=== PATIENT | male | born 1960 | race African-American/Black ===

== ENCOUNTER 2016-11-18 08:26 | Inpatient (IN) | payer OTHER ==
[2016-11-18] VITALS (8 sets, daily range): BP systolic 90–101; BP diastolic 40–71
[~2016-11-18] VITALS: Ht 172.7 cm; Wt 43.0 kg
[~2016-11-18 08:26] MED LIST: AMOXICILLIN500 MG PO; AMOXICILLIN875 MG PO; ANUCORT-HC25 MG RE; ATIVAN1 MG PO; AUGMENTIN875TAB PO; B-1100 MG PO; EQ OMEPRAZOLE20 MG PO; FOLIC ACID1 MG PO; GNP VITAMIN B PO; HYDROCHLOROT25 MG PO; LEVAQUIN750 MG PO; LIBRIUM10 MG PO; LIDOCAINE VISC20 ML EX; LISINOPRIL20 MG PO; MULTI VIT PO; NICOTINE T21 MG/PATC TD; NO HOME MEDS; PRAZOSIN HCL2 M1 PO; PRAZOSIN HCL5 MG PO; PRILOSEC20 MG/CAP PO; PRILOSEC40 MG PO; TRAZODONE50 MG PO; ULTRAM50 M1 PO; VITAMIN B-1100 M1 PO; ZESTRIL/PRI20 MG/TAB PO
[2016-11-18] MEDS ORDERED: LISINOP/HCTZ1 TA2 PO (08:45)
[2016-11-18 09:11] LABS: HEMATOCRIT 33.6 % (39.0-50.0); HEMOGLOBIN 12.5 g/dl (14.0-18.0); IMMATURE GRANULOCYTES 1.4 % (0.0-1.0); MEAN CELL VOLUME 80.2 fL CALC (80.0-100.0); MEAN CORPUSCULAR HGB 29.8 pG CALC (26.0-32.0); MEAN CORPUSCULAR HGB CONC 37.2 g/L CALC (32.0-36.0); NEUT# 5.31 thou/uL (1.82-7.42); RED BLOOD COUNT 4.19 mill/uL (4.70-6.10); RED CELL DISTRI WIDTH 13.3 % (11.5-15.5)
[2016-11-18 09:25] LABS: ALBUMIN 3.4 g/dL (3.2-5.0); ALKALINE PHOSPHATASE 163 u/l (38-126); ANION GAP 14 (6-22 (CALC)); BILIRUBIN, TOTAL 0.4 mg/dL (0.0-1.4); BUN 15 mg/dL (9-20); BUN/CREATININE RATIO 16 (12-20 (CALC)); CALCIUM 8.6 mg/dL (8.4-10.2); CARBON DIOXIDE 23 mmol/l (22-30); CHLORIDE 82 mmol/l (95-108); GFR > 60 ML/MIN (>=60 (CALC)); GFR FOR AFR.AMER. > 60 ML/MIN (>=60 (CALC)); GLUCOSE 111 mg/dL (75-110); POTASSIUM 3.7 mmol/l (3.5-5.1); SGOT/AST 56 u/l (17-59); SGPT/ALT 42 u/l (21-72); TOTAL PROTEIN 6.6 g/dL (6.3-8.2)
[2016-11-18 09:36] LABS: MYOGLOBIN 53 ng/mL (0 - 121)
[2016-11-18 09:52] LABS: SODIUM 115 mmol/l (137-146)
[2016-11-18 13:30] LABS: URINE BILIRUBIN - DIPSTICK NEGATIVE (NEGATIVE); URINE BLOOD DIPSTICK NEGATIVE (NEGATIVE); URINE CLARITY CLEAR; URINE COLOR YELLOW; URINE GLUCOSE - DIPSTICK NEGATIVE (NEGATIVE); URINE KETONE NEGATIVE (NEGATIVE); URINE LEUK ESTERASE NEGATIVE (Negative); URINE NITRITE - DIPSTICK NEGATIVE (Negative); URINE PH 5.5 (4.5-8.0); URINE PROTEIN - DIPSTICK NEGATIVE (NEG-TRACE); URINE SPECIFIC GRAVITY <=1.005
[2016-11-18 18:28] LABS: ANION GAP 10 (6-22 (CALC)); BUN 12 mg/dL (9-20); BUN/CREATININE RATIO 15 (12-20 (CALC)); CALCIUM 7.9 mg/dL (8.4-10.2); CARBON DIOXIDE 21 mmol/l (22-30); CHLORIDE 91 mmol/l (95-108); CREATININE 0.8 mg/dL (0.7-1.3); GFR > 60 ML/MIN (>=60 (CALC)); GFR FOR AFR.AMER. > 60 ML/MIN (>=60 (CALC)); GLUCOSE 107 mg/dL (75-110); POTASSIUM 3.6 mmol/l (3.5-5.1)
[2016-11-18 18:33] LABS: SODIUM 118 mmol/l (137-146)
[2016-11-19] VITALS (8 sets, daily range): BP systolic 95–119; BP diastolic 50–74
[2016-11-19 04:47] LABS: ALBUMIN 2.1 g/dL (3.2-5.0); BUN 8 mg/dL (9-20); CALCIUM 7.6 mg/dL (8.4-10.2); CARBON DIOXIDE 21 mmol/l (22-30); CHLORIDE 96 mmol/l (95-108); CREATININE 0.7 mg/dL (0.7-1.3); GFR > 60 ML/MIN (>=60 (CALC)); GFR FOR AFR.AMER. > 60 ML/MIN (>=60 (CALC)); GLUCOSE 84 mg/dL (75-110); POTASSIUM 3.4 mmol/l (3.5-5.1); SODIUM 121 mmol/l (137-146)
[2016-11-19] MEDS ORDERED: LORTAB 5-325 MG1 TAB PO (09:06)
[2016-11-19 12:53] LABS: POTASSIUM 3.1 mmol/l (3.5-5.1)
== END 2016-11-19 17:22 | disposition home or self-care (01) | DRG 641 ==
LOC: ENPENDDIS → ED 08:26 → ED-I 09:48 → ED 10:11 → ICU 10:12
PROVIDERS: Emergency Medicine; Internal Medicine Nephrology; ADMIT Internal Medicine; ATTEND Internal Medicine
PROC: 3E0234Z Introduction of Serum, Toxoid and Vaccine into Muscle, Percutaneous Approach (ICD-10-PCS; principal; 2016-11-19)
DX: E87.1 Hypo-osmolality and hyponatremia (principal); I10 Essential (primary) hypertension; F43.10 Post-traumatic stress disorder, unspecified; K21.9 Gastro-esophageal reflux disease without esophagitis; F17.210 Nicotine dependence, cigarettes, uncomplicated; F32.9 Major depressive disorder, single episode, unspecified; F10.10 Alcohol abuse, uncomplicated; T46.4X5A Adverse effect of angiotensin-converting-enzyme inhibitors, initial encounter; T50.2X5A Adverse effect of carbonic-anhydrase inhibitors, benzothiadiazides and other diuretics, initial encounter; D63.8 Anemia in other chronic diseases classified elsewhere; Z23 Encounter for immunization
CPT/HCPCS: J1650